=== PATIENT | male | born 2000 | race Caucasian/White ===

== ENCOUNTER 2019-10-09 00:36 | Emergency (ER) | payer OTHER ==
[~2019-10-09] VITALS: Ht 193 cm; Wt 90.9 kg
[2019-10-09 00:39] VITALS: BP 129/70; PULSE 67; TEMP 98.4
== END 2019-10-09 01:20 | disposition home or self-care (01) ==
LOC: COL.ER 00:36
DX: M25.511 Pain in right shoulder (principal); F17.290 Nicotine dependence, other tobacco product, uncomplicated